=== PATIENT | female | born 1985 | race Caucasian/White ===

== ENCOUNTER 2023-08-23 11:11 | Emergency (ER) | payer OTHER ==
[2023-08-23] MEDS ORDERED: Sodium Chloride 0.9% 10 ML Syringe FLUSH PRN (11:33)
[2023-08-23] MEDS ORDERED: LORazepam 2 MG/ML SDV IVPUSH ONE (11:35)
[2023-08-23] MEDS ORDERED: Thiamine 200 MG/2 ML MDV IVPUSH ONE (11:37)
[2023-08-23] MEDS ORDERED: LORazepam 2 MG/ML SDV ONE (11:43)
[2023-08-23] MEDS ORDERED: Sodium Chloride 0.9% 1,000 ML IV SCH (11:45)
[2023-08-23] MEDS ORDERED: Sodium Chloride 0.9% 1,000 ML IV ONE (11:45)
[2023-08-23 12:00] LABS: BASOPHILS PERCENT AUTO 0.8 % (0.2-1.5); EOSINOPHILS PERCENT AUTO 0.2 % (0.6-8.1); HEMATOCRIT 38.1 % (34.2-48.2); HEMOGLOBIN 13.4 g/dL (11.4-15.5); LYMPHOCYTES ABSOLUTE AUTO 0.8 x10-3/uL (1.0-4.4); MEAN CORPUSCULAR HEMOGLOBIN 32.4 pg (23.9-33.9); MEAN CORPUSCULAR HGB CONC 35.1 g/dL (31.9-34.8); MEAN CORPUSCULAR VOLUME 92.2 fL (76.7-100.5); MEAN PLATELET VOLUME 7.2 fL (7.1-12.4); MONOCYTES ABSOLUTE AUTO 0.3 x10-3/uL (0.3-1.0); MONOCYTES PERCENT AUTO 6.3 % (4.4-15.7); NEUTROPHILS ABSOLUTE AUTO 4.4 x10-3/uL (1.5-6.3); NEUTROPHILS PERCENT AUTO 78.7 % (30.8-76.2); PLATELET COUNT,PLT 146 x10(3)uL (151-488); RED BLOOD CELL COUNT 4.13 x10(6)uL (3.60-5.20); RED CELL DISTRIBUTION WIDTH 15.3 % (12.3-16.5); WHITE BLOOD CELL COUNT,WBC 5.5 x10-3/uL (3.0-10.3)
[2023-08-23 12:05] LABS: ETHANOL BLOOD MEDICAL 0.04 % (<0.03)
[2023-08-23 12:08] LABS: PHOSPHORUS 2.1 mg/dL (2.6-4.6)
[2023-08-23 12:19] LABS: A/G RATIO 0.8; ALANINE AMINOTRANSFERASE,ALT 54 U/L (12-36); ALBUMIN 3.7 g/dL (3.5-5.2); ALKALINE PHOSPHATASE 91 IU/L (56-112); AMYLASE 63 U/L (25-115); ASPARTATE AMNIOTRANSFERASE,AST 78 IU/L (5-25); BILIRUBIN TOTAL 0.7 mg/dL (0.1-1.3); BLOOD UREA NITROGEN,BUN 4 mg/dL (7-18); BUN/CREATININE RATIO 3.3 (9-20); CALCIUM 8.6 mg/dL (8.6-10.2); CARBON DIOXIDE,CO2 28 mmol/L (21-32); CHLORIDE,CL 93 mmol/L (100-110); CREATININE 1.2 mg/dL (0.55-1.02); EST CRCL DRUG DOSING (CG) 63.49 mL/min; ESTIMATED GFR 59 mL/min (>60); GLUCOSE RANDOM 110 mg/dL (80-116); PROTEIN TOTAL,TP 8.2 g/dL (6.0-8.0); SODIUM,NA 135 mmol/L (135-145)
[2023-08-23] MEDS ORDERED: Magnesium Sulfate/Water 2 GM in Premix Bag 1 BAG IV ONE (12:19)
[2023-08-23 12:20] LABS: POTASSIUM,K 2.8 mmol/L (3.5-5.3)
[2023-08-23] MEDS ORDERED: Potassium Chloride 20 MEQ Tab.ER PO ONE (12:21)
[2023-08-23 13:05] LABS: BILIRUBIN,URINE NEGATIVE (NEGATIVE); GLUCOSE,URINE NORMAL (NORMAL); KETONES,URINE NEGATIVE (NEGATIVE); LEUKOCYTE ESTERASE,URINE NEGATIVE (NEGATIVE); NITRITE,URINE NEGATIVE (NEGATIVE); OCCULT BLOOD,URINE MODERATE (NEGATIVE); PROTEIN,URINE 30 mg/dL (NEGATIVE); UROBILINOGEN,URINE NORMAL (NEGATIVE)
[2023-08-23 13:14] LABS: APPEARANCE,URINE CLEAR (CLEAR); BACTERIA,URINE FEW (NS); COLOR,URINE YELLOW (YELLOW); HYALINE CASTS,URINE RARE (NS); RBC,URINE 0-5 (0-5); SQUAMOUS EPITHELIAL CELLS,UR FEW (NS,R,O)
[2023-08-23 13:15] LABS: AMPHETAMINES SCREEN, URINE NEGATIVE (NEGATIVE); BARBITURATE SCREEN,URINE NEGATIVE (NEGATIVE); BENZODIAZEPINES SCREEN,URINE POSITIVE (NEGATIVE); BUPRENORPHINE SCREEN,URINE NEGATIVE (NEGATIVE); METHADONE SCREEN, URINE NEGATIVE (NEGATIVE); METHAMPHETAMINE SCREEN, URINE NEGATIVE (NEGATIVE); OXYCODONE SCREEN,URINE NEGATIVE (NEGATIVE); PROPOXYPHENE SCREEN,URINE NEGATIVE (NEGATIVE); THC SCREEN,URINE NEGATIVE (NEGATIVE)
== END 2023-08-23 14:25 | disposition home or self-care (01) ==
LOC: FB.ED 11:11
DX: R56.9 Unspecified convulsions (principal); E87.6 Hypokalemia; E83.42 Hypomagnesemia
CPT/HCPCS: 36415; 70450; 80053; 80307; 81001; 82150; 83690; 83735; 84100; 85025; 87086; 93005; 96361; 96365; 96366; 96375; 99284; A9270; J2060; J3411; J3475; J3490; J7030